=== PATIENT | male | born 1985 | race Caucasian/White ===

== ENCOUNTER 2017-03-06 04:40 | Emergency (ER) | payer BC ==
[2017-03-06 04:55] VITALS: BP 120/81; PULSE 78; TEMP 98.3; BMI 26.7
[2017-03-06] MEDS ORDERED: MAG HYDROX/AL HYDROX/SIMETH 30 ML UNIT-DOSE CUP PO ONE (05:03)
[2017-03-06] MEDS ORDERED: ONDANSETRON 4 MG/2 ML VIAL IVPUSH ONE (05:03)
[2017-03-06] MEDS ORDERED: PANTOPRAZOLE SODIUM 40 MG in SODIUM CHLORIDE 100 ML IVPB ONE (05:03)
[2017-03-06] MEDS ORDERED: SODIUM CHLORIDE 1,000 ML IV STA (05:03)
--- NOTE | 2017-03-06 05:09 | PDOC ---
History of Present Illness - General Chief Complaint: Chest Pain Stated Complaint: CHEST PAIN/NAUSEA Time Seen by Provider: 03/06/17 04:55 History Source: Patient Exam Limitations: No Limitations - History of Present Illness Initial Comments: 03/06/17 05:04 31yo Male patient w/ PmHx: GERD presents to ED c/o nausea and chest pains. Patient states he woke up out of his sleep sweating and nauseous. He states chest pain began 1 hour ago so he came in for evaluation. He also reports he was seen and evaluated at [facility] (Stress test and Echo negative) . Patient denies any other complaints at this time. Presenting Symptoms: Chest Pain Timing/Duration: reports: getting worse Severity/Quality: reports: moderate, ingestion, sharp, stabbing Location: reports: substernal Chest Pain Radiation: reports: no radiation Activities at Onset: reports: sleep Prior Chest Pain/Cardiac Workup: reports: Echocardiography, Stress Test Modifying Factors: worse with: antacids, breathing, coughing, defecating, eating , exercise, lying down, morphine, movement, nitroglycerin, oxygen, palpation, rest, other Aspirin Received prior to arrival (Core Measure): No: no aspirin today, unknown , 81 mg x 1, 81 mg x 2, 81 mg x 3, 81 mg x 4, 325 mg x 1, provided at home, provided by EMS, provided by ED ASA Contraindications (Core Measure): No: Allergy, Other, Active Blding w/i 24 hrs., Plavix, Receiving Warfarin Past History - Travel Traveled outside of the country in the last 30 days: No Close contact w/someone who was outside of country & ill: No - Past Medical History Allergies/Adverse Reactions: Allergies Allergy/AdvReac Type Severity Reaction Status Date / Time No Known Allergies Allergy Verified 03/06/17 04:52 Home Medications: Ambulatory Orders NK [No Known Home Medication] 03/06/17 - Psycho/Social/Smoking Cessation Hx Anxiety: No Suicidal Ideation: No Smoking Status: No Smoking History: Never smoked Have you smoked in the past 12 months: No Number of Cigarettes Smoked Daily: 0 Information on smoking cessation initiated: No Hx Alcohol Use: No Drug/Substance Use Hx: No Cardiac Specific PMH - Complaint Specific PMHX Abdominal Aortic Aneurysm: No Angina: No Cardiac Arrhythmia: No Cardiac Stent: No GERD: No Myocardial Infarction: No Pacemaker: No Pulmonary Embolus: No Valvular Heart Disease: No Peripheral Vascular Disease: No Review of Systems - Review of Systems Able to Perform ROS?: Yes Is the patient limited Khmer proficient: No Constitutional: No: Chills, Fever Respiratory: No: Cough, Shortness of Breath, Stridor, Wheezing, Hemoptysis Cardiac (ROS): Yes: Chest Pain, Chest Tightness. No: Edema, Lightheadedness, Palpitations, Syncope ABD/GI: Yes: Nausea, Other (Epigastric abdominal pain). No: Diarrhea, Poor Appetite, Poor Fluid Intake, Vomiting, Abdominal cramping : No: Burning, Dysuria, Discharge, Frequency, Hematuria, Pain Musculoskeletal: Yes: Back Pain Integumentary: Yes: Sweating. No: Bruising, Erythema, Flushing, Pallor, Pruritus, Rash Neurological: No: Headache, Numbness, Paresthesia, Tingling, Weakness, Ataxia, Dizziness All Other Systems: Reviewed and Negative *Physical Exam - Vital Signs Last Vital Signs Temp Pulse Resp BP Pulse Ox 98.3 F 78 16 120/81 98 03/06/17 04:52 03/06/17 04:52 03/06/17 04:52 03/06/17 04:52 03/06/17 04:52 - Physical Exam General Appearance: Yes: Nourished, Appropriately Dressed. No: Apparent Distress, Mild Distress, Moderate Distress, Severe Distress Neck: positive: Trachea midline, Supple. negative: Decreased range of motion, Stridor, Lymphadenopathy (R), Lymphadenopathy (L) Respiratory/Chest: positive: Lungs Clear, Normal Breath Sounds. negative: Respiratory Distress, Accessory Muscle Use, Labored Respiration, Rapid RR, Rhonchi, Stridor, Wheezing Cardiovascular: positive: Regular Rhythm, Regular Rate. negative: Edema, JVD, Murmur Gastrointestinal/Abdominal: positive: Normal Bowel Sounds, Soft. negative: Increased Bowel Sounds, Decreased BS, Distended, Guarding, Rebound, Tenderness Musculoskeletal: positive: Normal Inspection. negative: CVA Tenderness, Vertebral Tenderness Extremity: positive: Normal Capillary Refill, Normal Inspection, Normal Range of Motion. negative: Pedal Edema, Swelling, Calf Tenderness, Erythema, Inflammation Integumentary: positive: Normal Color, Dry, Warm. negative: Erythema, Diaphoresis, Rash, Swelling, Bruising Neurologic: positive: inspector process II-XII NML intact, Fully Oriented, Alert, Normal Mood/ Affect, Normal Response, Motor Strength 04/01 ED Treatment Course - LABORATORY CBC & Chemistry Diagram: 03/06/17 05:27 03/06/17 05:27 - ADDITIONAL ORDERS Additional order review: Laboratory Results 03/06/17 05:27 Sodium 142 Potassium 3.6 Chloride 105 Carbon Dioxide 29 Anion Gap 8 BUN 13 Creatinine 0.8 Creat Clearance w eGFR > 60 Random Glucose 92 Calcium 8.0 L Total Bilirubin 1.0 AST 11 L ALT 21 Alkaline Phosphatase 62 Creatine Kinase 90 Troponin I < 0.02 Total Protein 6.8 Albumin 3.8 03/06/17 05:27 RBC 5.39 MCV 80.9 MCHC 34.1 RDW 13.6 MPV 8.7 Neutrophils % 81.4 Lymphocytes % 10.7 Monocytes % 7.1 Eosinophils % 0.6 Basophils % 0.2 - RADIOLOGY Radiology Studies Ordered: Category Date Time Status CHEST PA & LAT [RAD] Stat Radiology 03/06/17 05:03 Ordered - Medications Given in the ED: ED Medications Discontinued Medications Generic Name Dose Route Start Last Admin Trade Name Freq PRN Reason Stop Dose Admin Al Hydroxide/Mg Hydroxide 30 ml 03/06/17 05:03 03/06/17 05:22 Mylanta Oral Suspension - PO 03/06/17 05:04 30 ml ONCE ONE Administration Pantoprazole Sodium 40 mg/ 100 mls @ 200 mls/hr 03/06/17 05:03 03/06/17 05:23 Sodium Chloride IVPB 03/06/17 05:32 200 mls/hr ONCE ONE Administration Sodium Chloride 1,000 mls @ 1,000 mls/hr 03/06/17 05:03 03/06/17 05:22 Normal Saline - IV 03/06/17 06:02 1,000 mls/hr ASDIR STA Administration Ondansetron HCl 4 mg 03/06/17 05:03 03/06/17 05:23 Zofran Injection IVPUSH 03/06/17 05:04 4 mg ONCE ONE Administration *DC/Admit/Observation/Transfer Diagnosis at time of Disposition: Gastroesophageal reflux disease Qualifiers: Esophagitis presence: without esophagitis Qualified Code(s): K21.9 - Gastro- esophageal reflux disease without esophagitis - Discharge Dispostion Disposition: HOME Condition at time of disposition: Improved Admit: No - Patient Instructions Printed Discharge Instructions: DI for Atypical Chest Pain, GERD Diet, DI for Gastroesophageal Reflux Disease (GERD) Additional Instructions: FOLLOW UP WITH DR. KENDRICK THIS WEEK. CALL TO SCHEDULE APPOINTMENT. CONTINUE TAKING YOUR REFLUX MEDICATIONS PRESCRIBED. RETURN IF ANY CONCERNS OR WORSENING OF SYMPTOMS. Print Language: KITTITIAN
[2017-03-06] MEDS ORDERED: PANTOPRAZOLE SODIUM 100 ML IVPB ONE (05:11)
[2017-03-06] MEDS ORDERED: MAG HYDROX/AL HYDROX/SIMETH 30 ML UNIT-DOSE CUP ONE (05:11)
[2017-03-06] MEDS ORDERED: ONDANSETRON 4 MG/2 ML VIAL ONE (05:12)
[2017-03-06 05:35] LABS: BASOPHIL 0.2 % (0-2.0); EOSINOPHIL 0.6 % (0-4.5); MCH 27.6 pg (25.7-33.7); MCHC 34.1 g/dl (32.0-35.9); MEAN CELL VOLUME 80.9 fl (80-96); MEAN PLT VOLUME 8.7 fl (7.5-11.1); NEUTROPHILS 81.4 % (42.8-82.8); PLATELET COUNT 190 K/MM3 (134-434); RDW 13.6 % (11.9-15.9); WHITE BLOOD COUNT 11.9 K/mm3 (4.0-10.0)
[2017-03-06 06:00] LABS: ALBUMIN 3.8 g/dl (3.4-5.0); ANION GAP 8 (8-16); CO2 29 mmol/L (21-32); COCKROFT - GAULT 165.99; CREATININE 0.8 mg/dL (0.7-1.3); GLUCOSE,RANDOM 92 mg/dL (74-106); SGOT/AST 11 U/L (15-37); SGPT/ALT 21 U/L (12-78); TOT PROT 6.8 g/dl (6.4-8.2)
[2017-03-06 06:03] LABS: ALK PHOS 62 U/L (45-117); TROPONIN I < 0.02 ng/ml (0.00-0.05)
--- NOTE | 2017-03-09 14:11 | EKG ---
Test Reason : Blood Pressure : / mmHG Vent. Rate : 067 BPM Atrial Rate : 067 BPM P-R Int : 138 ms QRS Dur : 082 ms QT Int : 384 ms P-R-T Axes : 061 049 048 degrees QTc Int : 405 ms NORMAL SINUS RHYTHM WITH SINUS ARRHYTHMIA POSSIBLE LEFT ATRIAL ENLARGEMENT POSSIBLE ANTERIOR INFARCT , AGE UNDETERMINED ABNORMAL ECG NO PREVIOUS ECGS AVAILABLE Confirmed by KAROL TORRES MD ([id number]) on 03/09/2017 2:11:29 PM Referred By: Confirmed By:KAROL TORRES MD
== END 2017-03-06 07:01 | disposition home or self-care (01) ==
LOC: JER 04:40
PROC: 3E033GC Introduction of Other Therapeutic Substance into Peripheral Vein, Percutaneous Approach (ICD-10-PCS; principal; 2017-03-06)
PROC: 3E0337Z Introduction of Electrolytic and Water Balance Substance into Peripheral Vein, Percutaneous Approach (ICD-10-PCS; 2017-03-06)
DX: K21.9 Gastro-esophageal reflux disease without esophagitis (principal)
CPT/HCPCS: 36415; 80053; 82550; 84484; 85025; 93005; 93010; 99284-25

== ENCOUNTER 2017-07-14 08:56 | Emergency (ER) | payer BC ==
[2017-07-14 09:02] VITALS: BP 118/71; PULSE 86; TEMP 97.9; BMI 26.8
--- NOTE | 2017-07-14 09:52 | PDOC ---
History of Present Illness - General Chief Complaint: Cold Symptoms Stated Complaint: SOB, TREMORS Time Seen by Provider: 07/14/17 09:17 History Source: Patient Exam Limitations: No Limitations - History of Present Illness Initial Comments: 07/14/17 09:44 Patient came for evaluation of shakiness, some shortness of breath and air hunger, and chest pain. has suffered from anxiety in the past and is uncertain as to cause but worried he may be having a heart attack. Exquisite pain and states pain is primarily up at upper sternum/collarbone without radiation. Denies any diaphoresis or radiation to arms. Denies any exercise intolerance. Denies cough or phlegm production, states shortness of breath worsens and as at times some hyperventilation. Denies fever, ear or throat pain , no one at home is sick. family returns from [facility] in one week . takes Xanax 2-3 times a week but did not use any today. Patient also suffers from reflux, and drinks large quantities of coffee. Has no history of cardiac disease, was told recently had some elevation in his cholesterol which he states has made him worried. Patient's return from [facility] 2 months ago and was treated for a URI with abx that ensued diarrhea for 3 weeks. That has resolved but patient feels has left him in a weakened state. Has not followed up with Dr. Prasad Cooper for any of these issues. 07/14/17 09:47 07/14/17 09:53 Timing/Duration: unsure Severity: mild Associated Symptoms: reports: chest pain, shortness of breath. denies: cough, diaphoresis, fever/chills, loss of appetite, malaise Past History - Travel Traveled outside of the country in the last 30 days: No Close contact w/someone who was outside of country & ill: No - Past Medical History Allergies/Adverse Reactions: Allergies Allergy/AdvReac Type Severity Reaction Status Date / Time No Known Allergies Allergy Verified 07/14/17 08:57 Home Medications: Ambulatory Orders Alprazolam [Xanax] 0.5 mg PO ASDIR 07/14/17 Psychiatric Problems: Yes (anxeity) - Psycho/Social/Smoking Cessation Hx Anxiety: No Suicidal Ideation: No Smoking Status: No Smoking History: Never smoked Have you smoked in the past 12 months: No Number of Cigarettes Smoked Daily: 0 Information on smoking cessation initiated: No Hx Alcohol Use: No Drug/Substance Use Hx: No Substance Use Type: None Review of Systems - Review of Systems Able to Perform ROS?: Yes Is the patient limited Chinese proficient: Yes Constitutional: Yes: Symptoms Reported, See HPI, Malaise. No: Fever HEENTM: Yes: Symptoms Reported, See HPI Respiratory: Yes: Symptoms reported, See HPI, Shortness of Breath. No: Cough, Wheezing Cardiac (ROS): Yes: Symptoms Reported, See HPI, Chest Pain, Palpitations. No: Irregular Heart Rate, Lightheadedness, Syncope (upper clavicular) ABD/GI: Yes: See HPI. No: Symptoms Reported Musculoskeletal: Yes: Symptoms Reported, See HPI Integumentary: Yes: Symptoms Reported Neurological: Yes: Symptoms reported, See HPI, Tremors (nervousness) Psychiatric: Yes: Anxiety. No: Sleep Pattern Change All Other Systems: Reviewed and Negative *Physical Exam - Vital Signs Last Vital Signs Temp Pulse Resp BP Pulse Ox 97.9 F 86 18 118/71 100 07/14/17 08:58 07/14/17 08:58 07/14/17 08:58 07/14/17 08:58 07/14/17 08:58 - Physical Exam General Appearance: Yes: Nourished, Appropriately Dressed, Apparent Distress, Mild Distress HEENT: positive: SHADI, Normal ENT Inspection, Normal Voice, TMs Normal, Pharynx Normal Neck: positive: Tender, Supple Respiratory/Chest: positive: Lungs Clear, Normal Breath Sounds. negative: Chest Tender, Decreased Breath Sounds, Rhonchi, Stridor, Wheezing Cardiovascular: positive: Regular Rhythm, Regular Rate, S1, S2 Gastrointestinal/Abdominal: positive: Normal Bowel Sounds, Soft Musculoskeletal: positive: Normal Inspection Extremity: positive: Normal Capillary Refill, Normal Inspection, Normal Range of Motion Integumentary: positive: Normal Color, Dry, Warm, Pale Neurologic: positive: hris developer II-XII NML intact, Fully Oriented, Alert, Normal Mood/ Affect Medical Decision Making - Medical Decision Making 07/14/17 09:53 EKG normal sinus rhythm without any evidence of ischemia, arrhythmias, or any other pathology. Mild anxiety and we'll treat conservatively as patient already has prescription/and neck which she takes infrequently. Patient encouraged to follow-up with Dr. Niño for thorough evaluation and possible referral for therapy sessions for anxiety treatment. 07/14/17 09:55 *DC/Admit/Observation/Transfer Diagnosis at time of Disposition: Mild anxiety - Discharge Dispostion Disposition: HOME Condition at time of disposition: Stable Admit: No - Patient Instructions Printed Discharge Instructions: Anxiety and Panic Attacks (Alternative Therapy) Additional Instructions: Rest, avoid strenuous activity or exercise until symptoms resolve Avoid stimulants /caffeinated beverages, muscle boosters Drink lots of fluids, water, and caffeinated teas Use antihistamines like Benadryl for mild sedative property Follow up with Dr. Prasad Niño to be thoroughly evaluated and discuss possibility of therapy for anxiety evaluation - Post Discharge Activity Work/School Note: Back to Work
--- NOTE | 2017-07-14 15:05 | EKG ---
Test Reason : Blood Pressure : / mmHG Vent. Rate : 073 BPM Atrial Rate : 073 BPM P-R Int : 140 ms QRS Dur : 078 ms QT Int : 356 ms P-R-T Axes : 053 043 043 degrees QTc Int : 392 ms NORMAL SINUS RHYTHM NORMAL ECG WHEN COMPARED WITH ECG OF 06-MAR-2017 04:52, NO SIGNIFICANT CHANGE WAS FOUND Confirmed by SANTOS PINZON MD ([id number]) on 07/14/2017 3:04:49 PM Referred By: Confirmed By:SANTOS PINZON MD
== END 2017-07-14 09:56 | disposition home or self-care (01) ==
LOC: JERFT 08:56
DX: F41.9 Anxiety disorder, unspecified (principal)
CPT/HCPCS: 93005; 93010; 99281-25

== ENCOUNTER 2017-09-17 11:04 | Emergency (ER) | payer BC ==
[2017-09-17 11:10] VITALS: BMI 26.6
--- NOTE | 2017-09-17 11:43 | PDOC ---
Attending Attestation - Resident Resident Name: Ra Zenonhil - ED Attending Attestation I have performed the following: I have examined & evaluated the patient, The case was reviewed & discussed with the resident, I agree w/resident's findings & plan, Exceptions are as noted - Medical Decision Making 09/17/17 11:43 I, Dr. Tammy Damian, DO, attest that this document has been prepared under my direction and personally reviewed by me in its entirety. I further attest, that it accurately reflects all work, treatment, procedures and medical decision -making performed by me. 09/17/17 12:29 a/p: 32yo male with vertigo/byers/tinnitus -neuro intact -suspect dehydration assoc with tension byers given recetn c diff colitis -pt will need outpt ENT follow up -will obtain head ct, labs -ivf hydrytion, reglan, reassess <Tammy Damian - Last Filed: 09/17/17 12:29> - HPI HPI: 09/17/17 12:59 Patient is a 32 year old male with no significant past medical history of Anxiety, who presents to the ED with complaints of lightheadedness that began 1 month ago. Patient reports undergoing dental procedure 1 month ago and was prescribed amoxicillin. He reports lightheadedness began soon after taking the amoxicillin antibiotics. Patient reports experiencing intermittent headache secondary to lightheadedness. He reports being prescribed flagyl with no change in symptoms. Patient states he called GI physician who said symptoms are normal with antibiotics. He reports experiencing slurred speech and slight loss of memory 4 days ago secondary to headache. Denies chest pain, SOB. Denies coughing, vomiting. Denies contact with sick individuals. Denies any other symptoms. Allergies: Metronidazole, Amoxicillin. Surgical history: None Social history: No smoking. No alcohol. No illicit drugs. PMD: Dr. Prasad Villa. - Physicial Exam PE: 09/17/17 12:59 GENERAL: Awake, alert, and fully oriented, in no acute distress HEAD: No signs of trauma EYES: PERRLA, EOMI, sclera anicteric, conjunctiva clear ENT: +Wax in ears. Auricles normal inspection, hearing grossly normal, nares patent, oropharynx clear without exudates. Moist mucosa NECK: Normal ROM, supple, no lymphadenopathy, JVD, or masses LUNGS: Breath sounds equal, clear to auscultation bilaterally. No wheezes, and no crackles HEART: Regular rate and rhythm, normal S1 and S2, no murmurs, rubs or gallops ABDOMEN: Soft, nontender, normoactive bowel sounds. No guarding, no rebound. No masses EXTREMITIES: Normal range of motion, no edema. No clubbing or cyanosis. No cords, erythema, or tenderness NEUROLOGICAL: Cranial nerves II through XII grossly intact. Normal speech, normal gait SKIN: Warm, Dry, normal turgor, no rashes or lesions noted. - Medical Decision Making 09/17/17 12:59 Documentation prepared by Ronnie Craig, acting as medical claims assistant for Tammy Damian DO, MD/. <Ronnie Craig - Last Filed: 09/17/17 12:59>
[2017-09-17] MEDS ORDERED: METOCLOPRAMIDE HCL INJECTION 10 MG/2 ML VIAL IVPUSH ONE (11:45)
--- NOTE | 2017-09-17 11:50 | PDOC ---
History of Present Illness - General Chief Complaint: Lightheaded Stated Complaint: HEADACHE Time Seen by Provider: 09/17/17 11:28 History Source: Patient Exam Limitations: No Limitations - History of Present Illness Initial Comments: 09/17/17 11:46 32 year old M with no pmh presenting with headache and lightheadedness. Patient states he took po flagyl 1 month ago for c. diff colitis and began having lightheadedness and headache. He called his GI who told him it was normal and if it continued to come to the ED. Patient states his headache is bifrontal radiating to his neck, started gradually, 10/10 at worst, and constant. Patient has never had this before. He endorses 2-3 episodes of slurred speech (3-4 days ago) and tinnitus bilaterally today. Patient denies fever, chills, limb weakness , ataxia, hearing loss, chest pain, sob. PSH: denies All: flagyl, amoxicillin SH: denies PCP: Dr. Prasad Villa 09/17/17 11:49 Past History - Past Medical History Allergies/Adverse Reactions: Allergies Allergy/AdvReac Type Severity Reaction Status Date / Time metronidazole [From Flagyl] Allergy Verified 09/17/17 11:11 amoxicillin AdvReac Verified 09/17/17 11:11 Home Medications: Ambulatory Orders Alprazolam [Xanax] 0.5 mg PO ASDIR 07/14/17 Psychiatric Problems: Yes (anxeity) - Suicide/Smoking/Psychosocial Hx Smoking Status: No Smoking History: Never smoked Have you smoked in the past 12 months: No Number of Cigarettes Smoked Daily: 0 Hx Alcohol Use: No Drug/Substance Use Hx: No Substance Use Type: None Review of Systems - Review of Systems Able to Perform ROS?: Yes Comments:: 09/17/17 11:48 GENERAL/CONSTITUTIONAL: No fever or chills. No weakness. HEAD, EYES, EARS, NOSE AND THROAT: No change in vision. No ear pain or discharge. No sore throat. +tinnitus CARDIOVASCULAR: No chest pain or shortness of breath RESPIRATORY: No cough, wheezing, or hemoptysis. GASTROINTESTINAL: No nausea, vomiting, diarrhea or constipation. GENITOURINARY: No dysuria, frequency, or change in urination. MUSCULOSKELETAL: No joint or muscle swelling or pain. No neck or back pain. SKIN: No rash NEUROLOGIC: +headache, +lightheadedness No vertigo, loss of consciousness, or change in strength/sensation. ENDOCRINE: No increased thirst. No abnormal weight change HEMATOLOGIC/LYMPHATIC: No anemia, easy bleeding, or history of blood clots. ALLERGIC/IMMUNOLOGIC: No hives or skin allergy. *Physical Exam - Vital Signs Last Vital Signs Temp Pulse Resp BP Pulse Ox 98.0 F 87 20 128/88 98 09/17/17 11:06 09/17/17 11:06 09/17/17 11:06 09/17/17 11:06 09/17/17 11:06 - Physical Exam Comments: 09/17/17 11:49 GENERAL: Awake, alert, and fully oriented, in no acute distress HEAD: No signs of trauma, normocephalic, atraumatic EYES: PERRLA, EOMI, sclera anicteric, conjunctiva clear, +horizontal nystagmus ENT: Auricles normal inspection, hearing grossly normal, nares patent, oropharynx clear without exudates. Moist mucosa NECK: Normal ROM, supple, no lymphadenopathy, JVD, or masses LUNGS: No distress, speaks full sentences, clear to auscultation bilaterally HEART: Regular rate and rhythm, normal S1 and S2, no murmurs, rubs or gallops, peripheral pulses normal and equal bilaterally. ABDOMEN: Soft, nontender, normoactive bowel sounds. No guarding, no rebound. No masses EXTREMITIES: Normal inspection, Normal range of motion, no edema. No clubbing or cyanosis. NEUROLOGICAL: Cranial nerves II through XII grossly intact. Normal speech, normal gait, no focal sensorimotor deficits. 5/5 strength b/l, sensation intact , cerebellar intact. SKIN: Warm, Dry, normal turgor, no rashes or lesions noted. ED Treatment Course - LABORATORY CBC & Chemistry Diagram: 09/17/17 12:30 09/17/17 12:30 - RADIOLOGY Radiology Studies Ordered: Category Date Time Status HEAD CT WITHOUT CONTRAST [CT] Stat CT Scan 09/17/17 11:45 Ordered Medical Decision Making - Medical Decision Making 09/17/17 11:49 32 year old M with no pmh presenting with headache and lightheadedness. Plan: CBC, CMP, Head CT w/o contrast, iv reglan/benadryl 09/17/17 15:38 CT head negative. Labs unremarkable. Patient feeling better. Stable for d/c *DC/Admit/Observation/Transfer Diagnosis at time of Disposition: Tension headache - Discharge Dispostion Disposition: HOME Condition at time of disposition: Stable - Referrals Referrals: Prasad Villa MD [Primary Care Provider] - Mayo Quezada MD [Staff Physician] - Forrest Aguayo MD [Staff Physician] - - Patient Instructions Printed Discharge Instructions: DI for Headache Additional Instructions: Follow up with your primary care provider. You can also follow up with an ENT physician or a neurologist. A referral has been provided. If you have worsening headache, vomiting, blurry vision, chest pain, or shortness of breath please come back to the hospital immediately.
[2017-09-17] MEDS ORDERED: METOCLOPRAMIDE HCL INJECTION 10 MG/2 ML VIAL ONE (12:40)
[2017-09-17 12:42] LABS: BASOPHIL 0.4 % (0-2.0); EOSINOPHIL 0.9 % (0-4.5); MCH 27.3 pg (25.7-33.7); MCHC 33.3 g/dl (32.0-35.9); MEAN PLT VOLUME 8.5 fl (7.5-11.1); NEUTROPHILS 65.8 % (42.8-82.8); PLATELET COUNT 197 K/MM3 (134-434); RDW 14.1 % (11.9-15.9)
[2017-09-17 13:04] LABS: ALBUMIN 3.9 g/dl (3.4-5.0); ALK PHOS 56 U/L (45-117); ANION GAP 4 (8-16); BILIRUBIN,TOTAL 0.9 mg/dL (0.2-1.0); CALCIUM 8.4 mg/dL (8.5-10.1); CO2 29 mmol/L (21-32); CREATININE 0.7 mg/dL (0.7-1.3); GLUCOSE,RANDOM 87 mg/dL (74-106); SGPT/ALT 64 U/L (12-78); TOT PROT 7.3 g/dl (6.4-8.2)
[2017-09-17 13:05] LABS: SGOT/AST 26 U/L (15-37)
[2017-09-17] MEDS ORDERED: KETOROLAC TROMETHAMINE 30 MG/1 ML VIAL IVPUSH ONE (15:08)
[2017-09-17] MEDS ORDERED: KETOROLAC TROMETHAMINE 30 MG/1 ML VIAL ONE (15:33)
[2017-09-17 15:42] VITALS: BP 119/92; PULSE 78; TEMP 98.6
== END 2017-09-17 15:40 | disposition home or self-care (01) ==
LOC: JER 11:04
PROC: 3E0333Z Introduction of Anti-inflammatory into Peripheral Vein, Percutaneous Approach (ICD-10-PCS; principal; 2017-09-17)
PROC: 3E033GC Introduction of Other Therapeutic Substance into Peripheral Vein, Percutaneous Approach (ICD-10-PCS; 2017-09-17)
DX: G44.209 Tension-type headache, unspecified, not intractable (principal)
CPT/HCPCS: 36415; 70450-TC; 80053; 85025; 99283-25

== ENCOUNTER 2017-11-10 12:44 | Emergency (ER) | payer BC ==
[2017-11-10 12:59] VITALS: TEMP 97.8; BMI 27.1
--- NOTE | 2017-11-10 13:40 | PDOC ---
History of Present Illness - General Chief Complaint: Injury Stated Complaint: HEADACHE, SYNCOPE/NEAR SYNCOPE Time Seen by Provider: 11/10/17 13:07 - History of Present Illness Initial Comments: 11/10/17 13:35 32 yo M with no significant pmh who presents with head trauma s/p mechanical fall. Pt. reports falling from 3 feet ladder 3 hours [employer] with subsequent LOC for 5 minutes. States that he hit head on adjacent latter prior to losing consciousness. Now endorses R sided pulsating frontal AGUILAR, and fatigue. Also reports blurred vision 1 hour [employer], and left sided parietal pain. Denies N/V, lightheadedness, vertigo, tinnitus, neck pain, back pain, abdominal pain, urinary complaints, urinary retention, incontinence, or saddle parasthesia. Denies anticoagulation. Past History - Past Medical History Allergies/Adverse Reactions: Allergies Allergy/AdvReac Type Severity Reaction Status Date / Time metronidazole [From Flagyl] Allergy Verified 11/10/17 12:55 amoxicillin AdvReac Verified 11/10/17 12:55 Home Medications: Ambulatory Orders Alprazolam [Xanax] 0.25 mg PO ASDIR 07/14/17 Omeprazole 20 mg PO DAILY 11/10/17 COPD: No Psychiatric Problems: Yes (anxeity) - Suicide/Smoking/Psychosocial Hx Smoking Status: No Smoking History: Former smoker Have you smoked in the past 12 months: No Number of Cigarettes Smoked Daily: 20 If you are a former smoker, when did you quit?: 2008 Information on smoking cessation initiated: No Hx Alcohol Use: No Drug/Substance Use Hx: No Substance Use Type: None Review of Systems - Review of Systems Comments:: 11/10/17 13:55 GENERAL/CONSTITUTIONAL: + Fatigue. No fever or chills. No weakness. HEAD, EYES, EARS, NOSE AND THROAT: + Headache. No change in vision. No ear pain or discharge. No sore throat.- CARDIOVASCULAR: No chest pain or shortness of breath RESPIRATORY: No cough, wheezing, or hemoptysis. GASTROINTESTINAL: No nausea, vomiting, diarrhea or constipation. GENITOURINARY: No dysuria, frequency, or change in urination. MUSCULOSKELETAL: No joint or muscle swelling or pain. No neck or back pain. SKIN: No rash NEUROLOGIC: No vertigo, loss of consciousness, or change in strength/sensation. ENDOCRINE: No increased thirst. No abnormal weight change HEMATOLOGIC/LYMPHATIC: No anemia, easy bleeding, or history of blood clots. ALLERGIC/IMMUNOLOGIC: No hives or skin allergy. *Physical Exam - Vital Signs Last Vital Signs Temp Pulse Resp BP Pulse Ox 97.8 F 96 H 18 137/84 100 11/10/17 12:55 11/10/17 12:55 11/10/17 12:55 11/10/17 12:55 11/10/17 12:55 - Physical Exam Comments: 11/10/17 13:56 GENERAL: Awake, alert, and fully oriented, in no acute distress HEAD: Mild left parietal frontal abrasion and swelling. No signs of trauma, normocephalic. EYES: PERRLA, EOMI, sclera anicteric, conjunctiva clear ENT: Auricles normal inspection, hearing grossly normal, nares patent, oropharynx clear without exudates. Moist mucosa NECK: Normal ROM, supple, no lymphadenopathy, JVD, or masses LUNGS: No distress, speaks full sentences, clear to auscultation bilaterally HEART: Regular rate and rhythm, normal S1 and S2, no murmurs, rubs or gallops, peripheral pulses normal and equal bilaterally. ABDOMEN: Soft, nontender, normoactive bowel sounds. No guarding, no rebound. No masses EXTREMITIES : Normal inspection, Normal range of motion, no edema. No clubbing or cyanosis. NEUROLOGICAL: Cranial nerves II through XII grossly intact. Normal speech, normal gait, no focal sensorimotor deficits. Normal ELIZABETH SKIN: Warm, Dry, normal turgor, no rashes or lesions noted. ED Treatment Course - RADIOLOGY Radiology Studies Ordered: Category Date Time Status HEAD CT WITHOUT CONTRAST [CT] Stat CT Scan 11/10/17 13:32 Ordered Medical Decision Making - Medical Decision Making 11/10/17 15:34 32 yo M with no significant pmh who presents with head trauma s/p mechanical fall following 3 feet foot ladder 3 hours [employer] with subsequent LOC for 5 minutes. Now endorses R sided pulsating frontal AGUILAR, and fatigue. Also reports blurred vision 1 hour [employer], and left sided parietal pain. Denies N/V, lightheadedness, vertigo, tinnitus, weakness, convulsions, neck pain, back pain , abdominal pain, urinary complaints, urinary retention, incontinence, or saddle parasthesia. Denies anticoagulation. Physical exam with left sided fronto temporal abrasion. Hemodynamically stable. Will obtain imaging for to r/ o intracerebral hemorrhage vs. hematoma. PCP Prasad Villa. ED Course: CT HEAD NON CON: Unremarkable. No acute pathology. CT C SPINE NON CON: Unremarkable. No acute pathology. 11/10/17 15:51 Patient stable and ready for discharge with strict return precautions. 11/10/17 16:[address] Prasad Villa. Patient is safe to discharge with safe follow up to Dr. Villa on Tuesday. *DC/Admit/Observation/Transfer Diagnosis at time of Disposition: Headache, post-traumatic Qualifiers: Headache chronicity pattern: acute headache - Discharge Dispostion Disposition: HOME Condition at time of disposition: Stable Admit: No - Referrals Referrals: Prasad Villa MD [Primary Care Provider] - - Patient Instructions Printed Discharge Instructions: Closed Head Injury, DI for Postconcussion Syndrome, Post-Traumatic Headache Additional Instructions: Please return to the emergency department with any new or worsening symptoms or concerns. Please follow up with your primary medicine care provider within 48 hours. - Post Discharge Activity - Attestations Physician Attestion: 11/10/17 15:52 I attest to the information provided in this note.
[2017-11-10 16:07] VITALS: BP 127/77; PULSE 84
--- NOTE | 2017-11-10 16:53 | PDOC ---
Attending Attestation - Resident Resident Name: KrzysztofKazMatteo - ED Attending Attestation I have performed the following: I have examined & evaluated the patient, The case was reviewed & discussed with the resident, I agree w/resident's findings & plan, Exceptions are as noted - HPI HPI: 11/10/17 16:50 32-year-old male no past medical history here status post fall from a ladder approximately 3-4 feet patient states he fell and hit his head on a second ladder did have LOC initially felt like he had blurry vision no nausea no vomiting no weakness since this fall headache is gotten worse however patient does not take any blood thinners no neck or back pain was ambulating following his fall - Physicial Exam PE: 11/10/17 16:51 Awake alert no acute distress head is atraumatic pupils equally round reactive light no cervical spine tenderness lungs are clear bilaterally heart is regular without any murmurs rubs or gallops abdomen is soft and nontender extremities are warm well perfused neuro: GCS 15 strength is 5 out of 5 all 4 extremities patient is a and O 3 ambulates without difficulty speech is clear - Medical Decision Making 11/10/17 16:52 Status post head trauma complaining of headache nausea plan CT head rule out intracranial hemorrhage CT spine pain control as needed will discuss with patient's primary Dr. Dr. Blue Patient CT head and C-spine are unremarkable discussed with PCP Mirza will see patient in the office patient giving warning signs for head trauma to prompt repeat evaluation. Symptoms have resolved we'll DC to home
== END 2017-11-10 16:45 | disposition home or self-care (01) ==
LOC: JER 12:44
DX: R51 Headache (principal); W11.XXXA Fall on and from ladder, initial encounter; Y93.89 Activity, other specified; Y92.9 Unspecified place or not applicable; Z87.891 Personal history of nicotine dependence; F41.9 Anxiety disorder, unspecified
CPT/HCPCS: 70450-TC; 72125-TC; 99282-25

== ENCOUNTER 2017-11-15 07:19 | Emergency (ER) | payer BC ==
[2017-11-15 07:38] VITALS: BP 108/71; PULSE 72; TEMP 97.9; BMI 26.8
--- NOTE | 2017-11-15 07:53 | PDOC ---
Attending Attestation - Resident Resident Name: Tyler Menchaca - ED Attending Attestation I have performed the following: I have examined & evaluated the patient, The case was reviewed & discussed with the resident, I agree w/resident's findings & plan, Exceptions are as noted - Medical Decision Making 11/15/17 07:53 I, Dr. Tammy Damian, DO, attest that this document has been prepared under my direction and personally reviewed by me in its entirety. I further attest, that it accurately reflects all work, treatment, procedures and medical decision -making performed by me.
[2017-11-15] MEDS ORDERED: SODIUM CHLORIDE 0.9% 1000 ML INFUS.BAG IV ONE (09:24)
[2017-11-15] MEDS ORDERED: METOCLOPRAMIDE HCL INJECTION 10 MG/2 ML VIAL IVPUSH ONE (09:24)
--- NOTE | 2017-11-15 09:25 | PDOC ---
History of Present Illness - General History Source: Patient Exam Limitations: No Limitations - History of Present Illness Initial Comments: 11/15/17 09:58 The patient is a 32 year old male, with no significant past medical history who presents to the emergency department with headache, nausea, vomiting today. Patient is s/p traumatic fall from a ladder approximately 3-4 feet 5 days ago on 11/10/2017. Patient came to the ED with trauma to L temporal area and was discharged home with negative head CT. Today, patient complains of severe gradual onset of frontal headache radiating to his neck with associated vomiting (n and nausea and dizziness. Patient took Tylenol with no relief and presents to the ED for further evaluation. Patient reports C diff infection 3 months ago after taking Amoxicillin. Patient denied thunderclap headache, chest pain. Patient denies fever, chills, abdominal pain, diarrhea or constipation. Patient denies dysuria, frequency, urgency or hematuria. Patient denies sick contacts or recent travel. Allergies: Metronidazole Past surgical history: None Social history: None PCP: Dr. Prasad Villa <Carrie Vázquez - Last Filed: 11/15/17 09:58> <Tammy Damian - Last Filed: 11/15/17 11:31> - General Chief Complaint: Headache Stated Complaint: HEAD INJURY Time Seen by Provider: 11/15/17 07:44 Past History <Carrie Vázquez - Last Filed: 11/15/17 09:58> - Past Medical History COPD: No Psychiatric Problems: Yes (anxeity) - Suicide/Smoking/Psychosocial Hx Smoking Status: No Smoking History: Former smoker Have you smoked in the past 12 months: No Number of Cigarettes Smoked Daily: 20 If you are a former smoker, when did you quit?: 2008 Information on smoking cessation initiated: No Hx Alcohol Use: No Drug/Substance Use Hx: No Substance Use Type: None <Tammy Damian - Last Filed: 11/15/17 11:31> - Past Medical History Allergies/Adverse Reactions: Allergies Allergy/AdvReac Type Severity Reaction Status Date / Time metronidazole [From Flagyl] Allergy Verified 11/15/17 07:30 amoxicillin AdvReac Verified 11/15/17 07:30 Home Medications: Ambulatory Orders Alprazolam [Xanax] 0.25 mg PO ASDIR 07/14/17 Omeprazole 20 mg PO DAILY 12/14/17 Review of Systems - Review of Systems Able to Perform ROS?: Yes Comments:: 11/15/17 09:58 GENERAL/CONSTITUTIONAL: No fever or chills. No weakness. HEAD, EYES, EARS, NOSE AND THROAT: No change in vision. No ear pain or discharge. No sore throat. GASTROINTESTINAL: + nausea, vomiting. No diarrhea or constipation. GENITOURINARY: No dysuria, frequency, or change in urination. CARDIOVASCULAR: No chest pain or shortness of breath. RESPIRATORY: No cough, wheezing, or hemoptysis. MUSCULOSKELETAL: No joint or muscle swelling or pain. No neck or back pain. SKIN: No rash NEUROLOGIC: +headache. +dizziness. +headache. No vertigo, loss of consciousness , or change in strength/sensation. ENDOCRINE: No increased thirst. No abnormal weight change. HEMATOLOGIC/LYMPHATIC: No anemia, easy bleeding, or history of blood clots. ALLERGIC/IMMUNOLOGIC: No hives or skin allergy. <Carrie Vázquez - Last Filed: 11/15/17 09:58> *Physical Exam - Vital Signs Last Vital Signs Temp Pulse Resp BP Pulse Ox 97.9 F 72 19 108/71 98 11/15/17 07:30 11/15/17 07:30 11/15/17 07:30 11/15/17 07:30 11/15/17 07:30 - Physical Exam Comments: 11/15/17 09:58 GENERAL: Awake, alert, and fully oriented, in no acute distress HEAD: No signs of trauma EYES: PERRLA, EOMI, sclera anicteric, conjunctiva clear ENT: Auricles normal inspection, hearing grossly normal, nares patent, oropharynx clear without exudates. Moist mucosa NECK: Normal ROM, supple, no lymphadenopathy, JVD, or masses LUNGS: Breath sounds equal, clear to auscultation bilaterally. No wheezes, and no crackles HEART: Regular rate and rhythm, normal S1 and S2, no murmurs, rubs or gallops ABDOMEN: Soft, nontender, normoactive bowel sounds. No guarding, no rebound. No masses EXTREMITIES: Normal range of motion, no edema. No clubbing or cyanosis. No cords, erythema, or tenderness NEUROLOGICAL: Cranial nerves II through XII grossly intact. Normal speech, normal gait SKIN: Warm, Dry, normal turgor, no rashes or lesions noted. <Carrie Vázquez - Last Filed: 11/15/17 09:58> - Vital Signs Last Vital Signs Temp Pulse Resp BP Pulse Ox 97.9 F 72 19 108/71 98 11/15/17 07:30 11/15/17 07:30 11/15/17 07:30 11/15/17 07:30 11/15/17 07:30 <Tammy Damian - Last Filed: 11/15/17 11:31> ED Treatment Course - LABORATORY CBC & Chemistry Diagram: 11/15/17 09:48 11/15/17 09:48 - Medications Given in the ED: ED Medications Discontinued Medications Generic Name Dose Route Start Last Admin Trade Name Manuel PRN Reason Stop Dose Admin Diphenhydramine HCl 12.5 mg 11/15/17 09:24 11/15/17 09:56 Benadryl Injection - IVPUSH 11/15/17 09:25 12.5 mg ONCE ONE Administration Metoclopramide HCl 10 mg 11/15/17 09:24 11/15/17 09:57 Reglan Injection - IVPUSH 11/15/17 09:25 10 mg ONCE ONE Administration Sodium Chloride 1,000 ml 11/15/17 09:24 11/15/17 09:57 Normal Saline - IV 11/15/17 09:25 1,000 ml ONCE ONE Administration <Carrie Vázquez - Last Filed: 11/15/17 09:58> - LABORATORY CBC & Chemistry Diagram: 11/15/17 09:48 11/15/17 09:48 <Tammy Damian - Last Filed: 11/15/17 11:31> Medical Decision Making - Medical Decision Making 11/15/17 10:58 a/p: 32yo male with AGUILAR since tuesday -had closed head injury on -aguilar, dizziness, n/v -suspect post concussive syndrome -neuro intact, no focal deficits -had negative head ct, no risk factors for delayed bleeding -will medicate, check labs, re-eval -will give neuro follow up 11/15/17 11:28 re-eval: pt feeling much better no headache at this time neuro intact will give neuro follow up discussed concussion symptoms and expectant management discussed brain rest and all reasons to return to the ED pt stable for d/c to home agrees with all plans <Tammy Damian - Last Filed: 11/15/17 11:31> *DC/Admit/Observation/Transfer - Attestations Scribe Attestion: 11/15/17 09:58 Documentation prepared by Carrie Vázquez, acting as medical records clerk for Tammy Damian DO <Carrie Vázquez - Last Filed: 11/15/17 09:58> - Discharge Dispostion Admit: No - Attestations Physician Attestion: 11/15/17 11:31 I, Dr. Tammy Damian, DO, attest that this document has been prepared under my direction and personally reviewed by me in its entirety. I further attest, that it accurately reflects all work, treatment, procedures and medical decision -making performed by me. <Tammy Damian - Last Filed: 11/15/17 11:31> Diagnosis at time of Disposition: Post concussive syndrome - Discharge Dispostion Disposition: HOME Condition at time of disposition: Stable - Referrals Referrals: Prasad Villa MD [Primary Care Provider] - Forrest Aguayo MD [Staff Physician] - - Patient Instructions Printed Discharge Instructions: DI for Postconcussion Syndrome Additional Instructions: Please make an appointment to see the neurologist. Please follow up with your PMD. Please return to the ED with any further concerns or questions. Please avoid any further head trauma. - Post Discharge Activity Forms/Work/School Notes: Back to Work
[2017-11-15] MEDS ORDERED: METOCLOPRAMIDE HCL INJECTION 10 MG/2 ML VIAL ONE (09:50)
[2017-11-15 10:02] LABS: BASO % 0.5 % (0-2.0); EOS % 0.6 % (0-4.5); MCH 26.9 pg (25.7-33.7); MCHC 32.8 g/dl (32.0-35.9); MEAN CELL VOLUME 81.9 fl (80-96); MEAN PLT VOLUME 8.3 fl (7.5-11.1); NEUT % 58.2 % (42.8-82.8); PLATELET COUNT 201 K/MM3 (134-434); RDW 14.1 % (11.9-15.9); WHITE BLOOD COUNT 6.4 K/mm3 (4.0-10.0)
[2017-11-15 10:24] LABS: ALBUMIN 3.9 g/dl (3.4-5.0); ANION GAP 5 (8-16); BILIRUBIN,TOTAL 0.7 mg/dL (0.2-1.0); CALCIUM 8.4 mg/dL (8.5-10.1); CO2 30 mmol/L (21-32); CREATININE 0.9 mg/dL (0.7-1.3); GLUCOSE,RANDOM 95 mg/dL (74-106); MAGNESIUM 2.2 mg/dL (1.8-2.4); SGOT/AST 20 U/L (15-37)
[2017-11-15 10:52] LABS: ALK PHOS 54 U/L (45-117); SGPT/ALT 50 U/L (12-78); TOT PROT 7.2 g/dl (6.4-8.2)
== END 2017-11-15 11:44 | disposition home or self-care (01) ==
LOC: JER 07:19
PROC: 3E0337Z Introduction of Electrolytic and Water Balance Substance into Peripheral Vein, Percutaneous Approach (ICD-10-PCS; principal; 2017-11-15)
PROC: 3E033GC Introduction of Other Therapeutic Substance into Peripheral Vein, Percutaneous Approach (ICD-10-PCS; 2017-11-15)
DX: F07.81 Postconcussional syndrome (principal)
CPT/HCPCS: 36415; 80053; 83735; 85025; 99282-25

== ENCOUNTER 2018-04-20 20:44 | Emergency (ER) | payer BC, OTHER ==
[2018-04-20 20:55] VITALS: TEMP 98.2; BMI 25.9
--- NOTE | 2018-04-20 20:58 | PDOC ---
Rapid Medical Evaluation Chief Complaint: Chest Pain Time Seen by Provider: 04/20/18 20:52 Medical Evaluation: Allergies Allergy/AdvReac Type Severity Reaction Status Date / Time metronidazole [From Flagyl] Allergy Verified 04/20/18 20:47 amoxicillin AdvReac Verified 04/20/18 20:47 04/20/18 20:52 I have performed a brief in-person evaluation of this patient. The patient presents with a chief complaint of sent from Urgent Care for further evaluation of dizziness. Patient reports dizziness, chest tightness and left arm numbness since this am Pertinent physical exam findings: appears well lungs clear bilaterally, s1s2, fulls strength in all 4 limbs I have ordered the following: ekg , labs ordered The patient will proceed to the ED for further evaluation. Discharge Disposition - Referrals Referrals: Prasad Villa MD [Primary Care Provider] - - Patient Instructions - Post Discharge Activity
[2018-04-20 21:19] LABS: BASO % 0.6 % (0-2.0); EOS % 0.7 % (0-4.5); HEMATOCRIT 44.1 % (35.4-49); HEMOGLOBIN 14.7 GM/dL (11.7-16.9); LYMPH % 31.4 % (8-40); MCH 27.7 pg (25.7-33.7); MCHC 33.4 g/dl (32.0-35.9); MEAN PLT VOLUME 8.6 fl (7.5-11.1); MONO % 10.6 % (3.8-10.2); NEUT % 56.7 % (42.8-82.8); PLATELET COUNT 205 K/MM3 (134-434); RBC 5.31 M/mm3 (4.00-5.60); RDW 13.4 % (11.9-15.9); WHITE BLOOD COUNT 6.6 K/mm3 (4.0-10.0)
[2018-04-20 21:45] LABS: ALBUMIN 4.1 g/dl (3.4-5.0); ALK PHOS 57 U/L (45-117); ANION GAP 6 (8-16); BILIRUBIN,TOTAL 0.6 mg/dL (0.2-1.0); BLOOD UREA NITROGEN 15 mg/dL (7-18); CALCIUM 8.2 mg/dL (8.5-10.1); CHLORIDE 110 mmol/L (98-107); CO2 27 mmol/L (21-32); GLUCOSE,RANDOM 127 mg/dL (74-106); POTASSIUM 3.8 mmol/L (3.5-5.1); SGOT/AST 20 U/L (15-37); SGPT/ALT 41 U/L (12-78); SODIUM 143 mmol/L (136-145); TOT PROT 7.2 g/dl (6.4-8.2)
[2018-04-20 22:38] VITALS: BP 126/103; PULSE 86
--- NOTE | 2018-04-20 22:50 | PDOC ---
Attending Attestation - HPI HPI: 04/20/18 23:56 The patient is a 32 year old male with no significant past medical history who was sent to the ED from urgent care for chest pain that began this evening. He states he was seen by his PCP earlier today for right lower back pain, and had EKG performed that showed abnormal finding. He was sent home to follow up with cardiology. This evening he developed a squeezing chest tightness with associated headache and dizziness and went to the urgent care. There a second EKG was done showing biphasic p waves and he was sent here. 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 Denies any fevers. - Medical Decision Making 04/20/18 23:56 Documentation prepared by Ashleigh Mcgregor, acting as medical scientist for Cristian Woodard DO. <Ashleigh Mcgregor - Last Filed: 04/20/18 23:56> - Resident Resident Name: Jesse Carlisle - ED Attending Attestation I have performed the following: I have examined & evaluated the patient, The case was reviewed & discussed with the resident, I agree w/resident's findings & plan, Exceptions are as noted - Physicial Exam PE: 04/21/18 00:11 physical exam physical exam*Physical Exam General Appearance: Yes: Appropriately Dressed. No: Apparent Distress, Intoxicated HEENT: positive: EOMI, SHADI, Normal ENT Inspection, Normal Voice, TMs Normal, Pharynx Normal. negative: Pale Conjunctivae, Photophobia, Scleral Icterus (R), Scleral Icterus (L) Neck: positive: Trachea midline, Normal Thyroid, Supple. negative: Tender, Rigid, Carotid bruit, Stridor, Lymphadenopathy (R), Lymphadenopathy (L), Thyromegaly Respiratory/Chest: positive: Lungs Clear, Normal Breath Sounds. negative: Chest Tender, Respiratory Distress, Accessory Muscle Use, Labored Respiration, RES, Crackles, Rales, Rhonchi, Stridor, Wheezing, Dullness Cardiovascular: positive: Regular Rhythm, Regular Rate, S1, S2. negative: Edema , JVD, Murmur, Bradycardia, Tachycardia Vascular Pulses: Dorsalis-Pedis (R): 2+, Doralis-Pedis (L): 2+ Gastrointestinal/Abdominal: positive: Normal Bowel Sounds, Flat, Soft. negative : Tender, Organomegaly, Pulsatile Mass, Increased Bowel Sounds, Decreased BS, Distended, Guarding, Rebound, Hernia, Hepatomegaly, Spleenomegaly Lymphatic: negative: Adenopathy, Tenderness Musculoskeletal: positive: Normal Inspection. negative: CVA Tenderness, Decreased Range of Motion Extremity: positive: Normal Capillary Refill, Normal Inspection, Normal Range of Motion, Pelvis Stable. negative: Tender, Pedal Edema, Swelling, Erythema Integumentary: positive: Normal Color, Dry, Warm. negative: Cyanotic, Erythema , Jaundice, Rash Neurologic: positive: carbonizer II-XII NML intact, Fully Oriented, Alert, Normal Mood/ Affect, Motor Strength 5/5. negative: EOM Palsy, Facial Droop, Sensory Deficit - Medical Decision Making 04/21/18 00:11 Pt treated and released. <Cristian Woodard - Last Filed: 04/21/18 00:14> Discharge Disposition - Discharge Dispostion Decision to Admit order: No <Cristian Woodard - Last Filed: 04/21/18 00:14> - Diagnosis Chest pain Qualifiers: Chest pain type: unspecified Qualified Code(s): R07.9 - Chest pain, unspecified - Discharge Dispostion Disposition: HOME Condition at time of disposition: Stable - Referrals Referrals: Prasad Villa MD [Primary Care Provider] - Neri Campos MD [Staff Physician] - - Patient Instructions Printed Discharge Instructions: DI for Chest Pain Additional Instructions: Please return if any problems. 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 - Post Discharge Activity
--- NOTE | 2018-04-20 23:15 | PDOC ---
History of Present Illness - General Chief Complaint: Chest Pain Stated Complaint: SENT FROM PCP Time Seen by Provider: 04/20/18 20:52 - History of Present Illness Initial Comments: patient is a 32 year old male, with a significant past medical history of, who presents to the emergency department complaining of acute onset of chest tightness this PM. Pt was seen by Dr. Villa in clinic today due to L sided flank pain and chronic L arm numbness, received an EKG in office with an abnormal finding, recommended to f/u with cardiology. After this visit, pt states he began feeling a "squeezing" tightness in his chest with AGUILAR and dizziness. No exacerbating or relieving symptoms. Pt was seen at urgent care and received another EKG with biphasic pwaves in lateral lead and was sent to ED. Pt endorses significant financial stress recently and takes Xanax for anxiety at night to help him get to sleep. Pt received a stress test in October of 2017, which was normal. He does not currently follow with a cardiology. Not currently on AC. No hx of any cardiac conditions. Pt endorses chronic intermittent L arm numbness, current episode beginning two days ago. Pt with hx of moderate GERD, currently taking protonix. The patient denies chest pain, shortness of breath, headache or dizziness. Denies fever, chills, nausea, vomiting, diarrhea and constipation. Denies dysuria, frequency, urgency and hematuria. Allergies: none Past surgical history: none Social History: Denies toxic habits PMD: Dr. Prasad Villa 04/20/18 23:11 Past History - Past Medical History Allergies/Adverse Reactions: Allergies Allergy/AdvReac Type Severity Reaction Status Date / Time metronidazole [From Flagyl] Allergy Verified 04/20/18 20:47 amoxicillin AdvReac Verified 04/20/18 20:47 Home Medications: Ambulatory Orders Alprazolam [Xanax] 0.25 mg PO ASDIR 07/14/17 Omeprazole 20 mg PO DAILY 11/10/17 COPD: No Psychiatric Problems: Yes (anxeity) - Suicide/Smoking/Psychosocial Hx Smoking Status: No Smoking History: Former smoker Have you smoked in the past 12 months: No Number of Cigarettes Smoked Daily: 0 If you are a former smoker, when did you quit?: 2012 Information on smoking cessation initiated: No Hx Alcohol Use: No Drug/Substance Use Hx: No Substance Use Type: None Review of Systems - Review of Systems Comments:: GENERAL/CONSTITUTIONAL: No fever or chills. No weakness. HEAD, EYES, EARS, NOSE AND THROAT: No change in vision. No ear pain or discharge. No sore throat. CARDIOVASCULAR: +Chest tightness. No chest pain or shortness of breath RESPIRATORY: No cough, wheezing, or hemoptysis. GASTROINTESTINAL: No nausea, vomiting, diarrhea or constipation. GENITOURINARY: No dysuria, frequency, or change in urination. MUSCULOSKELETAL: No joint or muscle swelling or pain. No neck or back pain. SKIN: No rash NEUROLOGIC: +numbness in L arm. +headache; no vertigo, loss of consciousness, or change in strength/sensation. ENDOCRINE: No increased thirst. No abnormal weight change HEMATOLOGIC/LYMPHATIC: No anemia, easy bleeding, or history of blood clots. ALLERGIC/IMMUNOLOGIC: No hives or skin allergy. 04/20/18 23:25 *Physical Exam - Vital Signs Last Vital Signs Temp Pulse Resp BP Pulse Ox 98.2 F 86 15 126/103 98 04/20/18 20:48 04/20/18 22:31 04/20/18 22:31 04/20/18 22:31 04/20/18 20:48 - Physical Exam Comments: GENERAL: Young man, Awake, alert, and fully oriented, in no acute distress HEAD: No signs of trauma, normocephalic, atraumatic EYES: PERRLA, EOMI, sclera anicteric, conjunctiva clear ENT: Auricles normal inspection, hearing grossly normal, nares patent, oropharynx clear without exudates. Moist mucosa NECK: Normal ROM, supple, no lymphadenopathy, JVD, or masses LUNGS: No distress, speaks full sentences, clear to auscultation bilaterally HEART: Regular rate and rhythm, normal S1 and S2, no murmurs, rubs or gallops, peripheral pulses normal and equal bilaterally. ABDOMEN: Soft, nontender, normoactive bowel sounds. No guarding, no rebound. No masses EXTREMITIES : Normal inspection, Normal range of motion, no edema. No clubbing or cyanosis. NEUROLOGICAL: Decreased sensation in L arm in stocking distribution from elbow to wrist. Cranial nerves II through XII grossly intact. Normal speech, normal gait, no other focal sensorimotor deficits SKIN: Warm, Dry, normal turgor, no rashes or lesions noted 04/20/18 23:26 ED Treatment Course - LABORATORY CBC & Chemistry Diagram: 04/20/18 21:09 04/20/18 21:09 - ADDITIONAL ORDERS Additional order review: Laboratory Results 04/20/18 04/20/18 21:09 21:09 PTT (Actin FS) 31.1 Sodium 143 Potassium 3.8 Chloride 110 H Carbon Dioxide 27 Anion Gap 6 L BUN 15 D Creatinine 1.0 Creat Clearance w eGFR > 60 Random Glucose 127 H D Calcium 8.2 L Total Bilirubin 0.6 AST 20 ALT 41 Alkaline Phosphatase 57 Troponin I < 0.02 Total Protein 7.2 Albumin 4.1 04/20/18 21:09 RBC 5.31 MCV 83.0 MCHC 33.4 RDW 13.4 MPV 8.6 Neutrophils % 56.7 Lymphocytes % 31.4 Monocytes % 10.6 H Eosinophils % 0.7 Basophils % 0.6 - RADIOLOGY Radiology Studies Ordered: Category Date Time Status CHEST PA & LAT [RAD] Stat Radiology 04/20/18 23:01 Ordered Medical Decision Making - Medical Decision Making patient is a 32 year old male, with a significant past medical history of, who presents to the emergency department complaining of acute onset of chest tightness this PM. DDX includes anxiety, ACS, GERD, costochondritis, esophageal spasm, pleurisy. Plan: -cbc, cmp, trops, coags - EKG - CXR PA and lateral - cardiac and pulse ox monitoring 04/20/18 23:28 Pt VS stable, pain better controlled, all labs and studies unremarkable. Patient counseled on importance of f/u with PCP and liaison officer. Will discharge home with outpt f/u. 04/21/18 00:19 *DC/Admit/Observation/Transfer Diagnosis at time of Disposition: Chest pain Qualifiers: Chest pain type: unspecified Qualified Code(s): R07.9 - Chest pain, unspecified - Discharge Dispostion Disposition: HOME - Referrals Referrals: Neri Campos MD [Staff Physician] - Prasad Villa MD [Primary Care Provider] - - Patient Instructions Printed Discharge Instructions: DI for Chest Pain Additional Instructions: Please return if any problems. Please follow up with your liaison officer as soon as possible if symptoms persist. - Post Discharge Activity
--- NOTE | 2018-04-21 10:43 | EKG ---
Test Reason : Blood Pressure : / mmHG Vent. Rate : 081 BPM Atrial Rate : 081 BPM P-R Int : 134 ms QRS Dur : 078 ms QT Int : 328 ms P-R-T Axes : 058 034 051 degrees QTc Int : 381 ms NORMAL SINUS RHYTHM NORMAL ECG WHEN COMPARED WITH ECG OF 14-JUL-2017 09:14, NO SIGNIFICANT CHANGE WAS FOUND Confirmed by VALENTÍN INFANTE MD ([id number]) on 04/21/2018 10:43:22 AM Referred By: Confirmed By:VALENTÍN INFANTE MD
--- NOTE | 2018-05-02 13:27 | EKG ---
Test Reason : Blood Pressure : / mmHG Vent. Rate : 072 BPM Atrial Rate : 072 BPM P-R Int : 136 ms QRS Dur : 080 ms QT Int : 364 ms P-R-T Axes : 052 033 040 degrees QTc Int : 398 ms NORMAL SINUS RHYTHM WITH SINUS ARRHYTHMIA NORMAL ECG WHEN COMPARED WITH ECG OF 20-APR-2018 20:54, NO SIGNIFICANT CHANGE WAS FOUND Confirmed by MD KING PENG ([id number]) on 05/02/2018 1:27:18 PM Referred By: Confirmed By:MADDISON KING MD
== END 2018-04-21 00:21 | disposition home or self-care (01) ==
LOC: JER 20:44
DX: R07.9 Chest pain, unspecified (principal); R94.31 Abnormal electrocardiogram [ECG] [EKG]
CPT/HCPCS: 36415; 71046-TC-FY; 80053; 84484; 85025; 85730; 93005; 93010; 99285-25

== ENCOUNTER 2018-12-18 17:04 | Emergency (ER) | payer BC, OTHER ==
[2018-12-18 17:10] VITALS: BP 144/96; PULSE 91; TEMP 98.4; BMI 26.3
--- NOTE | 2018-12-18 17:12 | PDOC ---
Rapid Medical Evaluation Time Seen by Provider: 12/18/18 17:07 Medical Evaluation: Allergies Allergy/AdvReac Type Severity Reaction Status Date / Time metronidazole [From Flagyl] Allergy Verified 04/20/18 20:47 amoxicillin AdvReac Verified 04/20/18 20:47 12/18/18 17:07 Pt presents to the ED with one week of headaches and dizziness. Of note pt states that he has tinnitius for the past two days. Pt diagnosed with a concussion in October. Has been taking Tylenol and Ibuprofen with little relief of symptoms Exam: No gross neurodeficits, ambulatory Orders: Labs, IV Pt to proceed to ED for further evaluation Discharge Disposition - Diagnosis Headache, post-traumatic Qualifiers: Headache chronicity pattern: unspecified pattern Intractability: not intractable Qualified Code(s): G44.309 - Post-traumatic headache, unspecified, not intractable - Referrals Referrals: Prasad Villa MD [Primary Care Provider] - - Patient Instructions - Post Discharge Activity
[2018-12-18] MEDS ORDERED: ACETAMINOPHEN 325 MG TABLET (FP) PO ONE (18:21)
--- NOTE | 2018-12-18 18:30 | PDOC ---
History of Present Illness - General Chief Complaint: Head/Neck problem Stated Complaint: HEADAHE DIZZY Time Seen by Provider: 12/18/18 17:07 - History of Present Illness Initial Comments: Pineda Carr is a 33yo man with a h/o GERD and previous concussion with subsequent headaches who presents with frontal and occipital headache with neck pain since Tuesday and b/l tinnitus for 2 days. He reports that he has had frequent headaches in the past, but he has never had ringing in his ears and was concerned. For the headache, he has been taking NSAIDs up to 3x per day ( generally 400mg ibuprofen) with some relief. He additionally reports an episode of vomiting overnight last night, but states that he believes it is from his reflux as he had spicy food with a lot of heartburn right before bed last night. He has not had any additional nausea. Mr Carr denies any neurological symptoms including weakness, numbness, speech changes, difficulty hearing, AMS, or confusion. He has otherwise been feeling well and denies any URI symptoms, congestion, fever, sore throat, or cough. Past History - Past Medical History Allergies/Adverse Reactions: Allergies Allergy/AdvReac Type Severity Reaction Status Date / Time metronidazole [From Flagyl] Allergy Verified 04/20/18 20:47 amoxicillin AdvReac Verified 04/20/18 20:47 Home Medications: Ambulatory Orders Alprazolam [Xanax] 0.25 mg PO ASDIR 07/14/17 Omeprazole 20 mg PO DAILY 11/10/17 COPD: No Psychiatric Problems: Yes (anxeity) - Suicide/Smoking/Psychosocial Hx Smoking Status: No Smoking History: Unknown if ever smoked Have you smoked in the past 12 months: No Number of Cigarettes Smoked Daily: 0 If you are a former smoker, when did you quit?: 2012 Hx Alcohol Use: Yes (Socially) Drug/Substance Use Hx: No Substance Use Type: None Review of Systems - Review of Systems Comments:: General: No fevers, no chills, no weight or appetite change, no malaise HEENT: No changes in vision, no changes in hearing, no congestion, no sore throat. +tinnitus CV: No chest pain, no palpitations, no LE edema Pulm: No SOB, no cough, no wheezing GI: No nausea or vomiting, no change in bowel habits, no melena : No frequency, no urgency, no dysuria Musc: No back pain, no joint swelling, no recent injury Skin: No rash, no lesions, no erythema Endo: No excessive thirst, no heat/cold intolerance Heme: No unusual bruising or bleeding, no swollen glands Neuro: No syncope, no numbness/tingling, no focal weakness. +AGUILAR, h/o concussion Vasc: No claudication Psych: No recent change in mood, no SI or HI *Physical Exam - Vital Signs Last Vital Signs Temp Pulse Resp BP Pulse Ox 98.4 F 91 H 20 144/96 99 12/18/18 17:06 12/18/18 17:06 12/18/18 17:06 12/18/18 17:06 12/18/18 17:06 - Physical Exam Comments: General: Comfortable, no acute distress HEENT: PERRL, EOMI, MMM, voice normal, normal neck ROM, no LAD. B/L cerumen impaction Cards: RRR, no murmur appreciated Pulm: Comfortable on room air, clear to auscultation bilaterally Abd: Soft, nontender, nondistended Ext: Atraumatic. No LE edema. ROM intact. Strength 5/5 and equal bilaterally Vasc: Extremities WWP. Skin: Normal color, no rashes or lesions Neuro: A&Ox3, CN grossly intact, normal speech, motor/sensory grossly intact and symmetric. No focal deficits Psych: Mood appropriate to situation Moderate Sedation - Procedure Monitoring Vital Signs: Procedure Monitoring Vital Signs Temperature 98.4 F 12/18/18 17:06 Pulse Rate 91 H 12/18/18 17:06 Respiratory Rate 20 12/18/18 17:06 Blood Pressure 144/96 12/18/18 17:06 O2 Sat by Pulse Oximetry (%) 99 12/18/18 17:06 Medical Decision Making - Medical Decision Making 12/18/18 18:17 Pineda Carr is a 33yo man with a PMH of GERD and concussion (2017) who presents with frontal/occipital AGUILAR with neck pain since Tuesday and b/l tinnitus for 2 days. - Reassuring neurological exam, no deficits noted - B/l cerumen impaction 12/18/18 18:31 - Initial attempt unsuccessful. Hydrogen peroxide and water mixture to ear canal ; will reattempt 01/21/19 19:05 - Successful removal of cerumen from b/l ears after allowing peroxide to dell in ear canals - Pt reporting some vertigo after irrigation. SL zofran ordered for nausea 12/18/18 19:39 - Continued vertigo. Meclizine ordered for symptom relief - Now reporting pain behind b/l eyes, however AGUILAR resolved. - Will monitor in ED until vertigo improved so that pt can safely drive home. Discussed with Dr Vaughn. Hien Acevedo PGY1 *DC/Admit/Observation/Transfer Diagnosis at time of Disposition: Excessive cerumen in both ear canals - Discharge Dispostion Disposition: HOME Condition at time of disposition: Stable Decision to Admit order: No - Referrals Referrals: Prasad Villa MD [Primary Care Provider] - Mayo Quezada MD [Staff Physician] - - Patient Instructions Printed Discharge Instructions: DI for Cerumen Impaction, DI for Hormonal and Tension Headaches Additional Instructions: Discharge Instructions: You were seen in the emegency departemnt for headache and ringing in your ears ( tinnitus). The headache you described is likely nothing to be concerned about, and it should respond well to over the counter pain medications such as ibuprofen or acetaminophen. You were found to have earwax (cerumen) blocking both ears, which was probably the cause of the ringing. This wax was cleared out in the emergency department. Home Care: - For your headache, you can take ibuprofen 600mg (3 tablets of Advil or Motrin ) every 6-8 hours OR acetaminophen 650-1000mg (2 tablets Tylenol) every 6-8 hours. You may alternate or combine these medications if your headache continues to be severe, but do not take the same medication more frequently than every 6 hours (that is, if you take ibuprofen you must wait 6 hours before taking more ibuprofen). If you prefer, you may take naproxen (Aleve) twice a day instead of ibuprofen. Do NOT take both ibuprofen (Advil) and naproxen (Aleve ) at the same time as they are very similar medications. - Do not use cotton swabs to clean the inside of your ears. This can push wax further into the ear canal and cause a blockage. - Tinnitus can be annoying but is generally not anything to be concerned about. If it continues or returns, you can buy over the counter wax removers to use at home to remove any remaining wax. Follow Up: - If your symptoms continue for more than a week, make an appointment to follow up with your regular doctor. - You have been referred to Dr Quezada (an Ear, Nose and Throat doctor) for follow up. If you continue to have difficulty with earwax or ringing, you can make an appointment for follow up. - Seek immediate medical care if you have headaches with any neurological symptoms such as one-sided weakness, numbness/tingling, confusion or if you have any medical emergency such as chest pain or shortness of breath. - Post Discharge Activity Forms/Work/School Notes: Back to Work
[2018-12-18] MEDS ORDERED: MECLIZINE HCL 25 MG TABLET (FP) PO ONE ×2 (18:58→19:31)
[2018-12-18] MEDS ORDERED: ONDANSETRON *ODT* 4 MG TABLET SL ONE (19:06)
--- NOTE | 2018-12-18 19:08 | PDOC ---
Attending Attestation - HPI HPI: 12/18/18 19:12 The patient is 33 a year old male, with no significant past medical history, who presents to the emergency department with headache and associated pressure in his ears, since tuesday. The patient describes the ear pressure as ringing. He denies any recent fevers, chills, headache or dizziness. He denies any recent nausea, vomit, diarrhea or constipation. He denies any recent chest pain or shortness of breath. He denies any recent dysuria, frequency, urgency or hematuria. Allergies: Metronidazole and Amoxicillin Past surgical history: None reported. Primary Care Physician: Dr. Allen Parham - Physicial Exam PE: 12/18/18 19:13 GENERAL: Awake and alert x3. Well-appearing, well-nourished. No apparent distress. HEENT: + large amount of wax in RT ear. +small amount of wax in LT ear. Normocephalic, atraumatic. PERRL, EOM intact. CARDIOVASCULAR: Normal S1, S2. Regular rate and rhythm. PULMONARY: Clear to auscultation bilaterally. ABDOMEN: Soft, non-distended, non-tender. EXTREMITIES: Normal ROM in all four extremities. No gross deformities. SKIN: Warm, dry. No rash NEUROLOGICAL: No focal neurological deficits. <Sherry Fowler - Last Filed: 12/18/18 19:12> - Resident Resident Name: Hien Acevedo - ED Attending Attestation I have performed the following: I have examined & evaluated the patient, The case was reviewed & discussed with the resident, I agree w/resident's findings & plan, Exceptions are as noted - Medical Decision Making 12/18/18 19:10 33-year-old male presents with the sensation of his ears ringing. On exam, he has impacted cerumen bilaterally. He has no focal neural deficits, no ataxia, no motor weakness, no numbness or tingling in his extremities, no confusion and no speech deficit Was concerned because he has had a headache, but without visual changes 12/19/18 18:30 pt had his cerumen removed from both ear and his tinnitus decreased,he felt better. He has no focal neuro deficits, ENT <Jasmyne Vaughn - Last Filed: 12/19/18 18:32> Attestations - Attestations 12/18/18 19:13 Documentation prepared by Sherry Fowler, acting as medical education coordinator for Jasmyne Vaughn MD. <Sherry Fowler - Last Filed: 12/18/18 19:12>
[2018-12-18] MEDS ORDERED: ACETAMINOPHEN 325 MG TABLET (FP) ONE (19:17)
[2018-12-18] MEDS ORDERED: ONDANSETRON *ODT* 4 MG TABLET ONE (19:17)
[2018-12-18] MEDS ORDERED: MECLIZINE HCL 25 MG TABLET (FP) ONE (19:35)
== END 2018-12-18 20:29 | disposition home or self-care (01) ==
LOC: JER 17:04
PROC: 3E1B78Z Irrigation of Ear using Irrigating Substance, Via Natural or Artificial Opening (ICD-10-PCS; principal; 2018-12-18)
PROC: 3E1B78Z Irrigation of Ear using Irrigating Substance, Via Natural or Artificial Opening (ICD-10-PCS; 2018-12-18)
DX: G44.309 Post-traumatic headache, unspecified, not intractable (principal); H61.23 Impacted cerumen, bilateral
CPT/HCPCS: 99282-25; Q0162

== ENCOUNTER 2022-09-22 07:06 | Emergency (ER) | payer BC ==
[2022-09-22 07:16] VITALS: BP 120/81; PULSE 84; RESP 20; TEMP 97.7; BMI 28.0
[2022-09-22] MEDS ORDERED: ACETAMINOPHEN 325 MG TABLET (FP) PO ONE (07:49)
[2022-09-22] MEDS ORDERED: SODIUM CHLORIDE 1,000 ML IV STA (07:49)
[2022-09-22] MEDS ORDERED: ACETAMINOPHEN 325 MG TABLET (FP) ONE (08:07)
[2022-09-22 08:24] LABS: BASO % 1.4 % (0-2.0); EOS % 1.7 % (0-4.5); HEMATOCRIT 45.2 % (35.4-49); HEMOGLOBIN 15.2 GM/dL (11.7-16.9); LYMPH % 34.3 % (8-40); MCH 27.9 pg (25.7-33.7); MCHC 33.7 g/dl (32.0-35.9); MEAN CELL VOLUME 82.9 fl (80-96); MEAN PLT VOLUME 8.7 fl (7.5-11.1); MONO % 9.7 % (3.8-10.2); NEUT % 52.9 % (42.8-82.8); PLATELET COUNT 223 10^3/uL (134-434); RBC 5.45 M/mm3 (4.00-5.60); RDW 13.8 % (11.9-15.9); WHITE BLOOD COUNT 5.2 K/mm3 (4.0-10.0)
[2022-09-22 08:28] LABS: INR 1.03 (0.83-1.09); PROTHROMBIN TIME (PATIENT) 11.9 SEC (9.7-13.0)
[2022-09-22 08:39] LABS: BLOOD UREA NITROGEN 10.3 mg/dL (7-18); CALCIUM 8.8 mg/dL (8.5-10.1); MAGNESIUM 2.2 mg/dL (1.8-2.4)
[2022-09-22 08:42] LABS: CREATININE 0.7 mg/dL (0.55-1.3)
[2022-09-22 08:44] LABS: TOT PROT 7.4 g/dl (6.4-8.2)
== END 2022-09-22 10:36 | disposition home or self-care (01) ==
LOC: JER 07:06
PROC: 3E0337Z Introduction of Electrolytic and Water Balance Substance into Peripheral Vein, Percutaneous Approach (ICD-10-PCS; principal; 2022-09-22)
DX: R07.89 Other chest pain (principal); M79.662 Pain in left lower leg
CPT/HCPCS: 36415; 80053; 83735; 84484; 85025; 85379; 85610; 93005; 93010; 93971-TC; 99285-25

== ENCOUNTER 2023-04-11 08:00 | Emergency (ER) | payer BC ==
[2023-04-11 08:20] VITALS: RESP 18; TEMP 98.1; BMI 28.5
[2023-04-11 10:24] LABS: HEMATOCRIT 44.1 % (35.4-49); HEMOGLOBIN 15.4 GM/dL (11.7-16.9); MCH 28.1 pg (25.7-33.7); MCHC 34.9 g/dl (32.0-35.9); MEAN CELL VOLUME 80.5 fl (80-96); MEAN PLT VOLUME 8.9 fl (7.5-11.1); PLATELET COUNT 206 10^3/uL (134-434); RBC 5.48 M/mm3 (4.00-5.60); RDW 13.7 % (11.9-15.9); WHITE BLOOD COUNT 6.4 K/mm3 (4.0-10.0)
[2023-04-11 10:41] LABS: POTASSIUM 4.2 mmol/L (3.5-5.1)
[2023-04-11 10:43] LABS: ALBUMIN 3.8 g/dl (3.4-5.0); BLOOD UREA NITROGEN 12.6 mg/dL (7-18); CALCIUM 8.8 mg/dL (8.5-10.1)
[2023-04-11 10:47] LABS: CREATININE 0.8 mg/dL (0.55-1.3)
[2023-04-11 10:48] LABS: BILIRUBIN,TOTAL 0.7 mg/dL (0.2-1); TOT PROT 7.1 g/dl (6.4-8.2)
[2023-04-11 10:51] LABS: N-TERMINAL BNP 14.6 pg/ml (5-125)
[2023-04-11 11:32] VITALS: BP 119/78; PULSE 78
== END 2023-04-11 11:56 | disposition home or self-care (01) ==
LOC: JER 08:00
DX: R07.89 Other chest pain (principal); R06.09 Other forms of dyspnea; R60.0 Localized edema; Z20.822 Contact with and (suspected) exposure to COVID-19
CPT/HCPCS: 0241U-QW; 36415; 71045-TC-FY; 80053; 83880; 84484; 85027; 85379; 93005; 93010; 93971-TC; 99285-25

== ENCOUNTER 2023-11-22 08:28 | Emergency (ER) | payer BC ==
[2023-11-22 08:43] VITALS: BP 129/79; PULSE 70; RESP 16; TEMP 97.5; BMI 28.0
[2023-11-22] MEDS ORDERED: SODIUM CHLORIDE 0.9% 500 ML INFUS.BAG IV ONE (09:26)
[2023-11-22] MEDS ORDERED: METOCLOPRAMIDE HCL INJECTION 10 MG/2 ML VIAL IVPB ONE (09:26)
[2023-11-22] MEDS ORDERED: ACETAMINOPHEN 1000 MG/100 ML BAG IVPB ONE (09:26)
[2023-11-22] MEDS ORDERED: METOCLOPRAMIDE HCL INJECTION 10 MG/2 ML VIAL ONE (09:32)
[2023-11-22] MEDS ORDERED: ACETAMINOPHEN INJECTION 100 ML IVPB ONE (09:33)
== END 2023-11-22 11:39 | disposition home or self-care (01) ==
LOC: JER 08:28
PROC: 3E033NZ Introduction of Analgesics, Hypnotics, Sedatives into Peripheral Vein, Percutaneous Approach (ICD-10-PCS; principal; 2023-11-22)
PROC: 3E033GC Introduction of Other Therapeutic Substance into Peripheral Vein, Percutaneous Approach (ICD-10-PCS; 2023-11-22)
DX: R51.9 Headache, unspecified (principal)
CPT/HCPCS: 70450-TC; 82962; 99284-25